=== PATIENT | female | born 1945 | race Caucasian/White ===

== ENCOUNTER 2017-03-11 03:04 | Observation (INO) ==
[2017-03-11 03:33] LABS: Basophils # 0.1 K/mcL (0.0-0.2); Basophils % 0.7 %; Eosinophils # 0.2 K/mcL (0.0-0.6); Eosinophils % 2.5 %; Hematocrit 40.7 % (35.3-44.9); Hemoglobin 13.6 g/dL (11.5-15.4); Immature Granulocytes % 0.4 % (0-4); Lymphocytes # 2.5 K/mcL (0.6-4.6); Lymphocytes % 29.5 %; Mean Corpuscular HGB Conc 33.4 g/dL (31.6-35.5); Mean Corpuscular Hemoglobin 30.7 pg (28.0-33.3); Mean Corpuscular Volume 91.9 fL (83.0-100.0); Mean Platelet Volume 9.5 fL (9.4-12.4); Monocytes # 0.4 K/mcL (0.0-1.3); Monocytes % 5.3 %; Neutrophils # 5.1 K/mcL (1.6-8.9); Platelet Count 210 K/mcL (140-400); Red Blood Count 4.43 M/mcL (3.82-4.97); Segmented Neutrophils % 61.6 %
[2017-03-11 03:44] LABS: Activated Partial Thrombo Time 32.2 Seconds (26.0-36.0)
--- NOTE | 2017-03-11 03:46 | Emergency Department Note ---
Disposition Clinical Impression: Chest pain, rule out acute myocardial infarction Disposition: Admitted As Inpatient Condition: Fair Time of Disposition: 04:39 Chest Pain HPI - General Chief Complaint: ED Chest Pain Stated Complaint: Chest Pain Time Seen by Provider: 03/11/17 03:05 Source: patient, EMS Mode of arrival: EMS Limitations: no limitations Vital Signs Reviewed: Yes Nursing Notes Reviewed: Yes - History of Present Illness HPI Narrative: Alert and oriented nontoxic-appearing 72-year-old female presents for evaluation of substernal chest pain that has been intermittent in nature for the past 2 days. She states that the pain is alleviated somewhat by lying in a supine position. It is worsened by sitting upright. She denies any fevers, chills, cough, hemoptysis, abdominal pain, edema, or shortness of breath. She describes the pain as a dull ache and she rates it a 2 out of 10 on a 10 point scale. There is no migration or radiation of this pain. Pt complaint: chest pain Onset (ago): day(s) (2) Duration: intermittent Pain Location: substernal Severity: mild Severity scale (1-10): 1 Quality: aching Pain Radiation: none Improves with: other (Lying flat) Worsens with: other (Sitting upright) Associated symptoms: Denies: nausea, diaphoresis, dyspnea, syncope, palpitations , fever, cough, leg swelling Treatments prior to arrival chest pain: aspirin (81 mg aspirin 3 tablets given per EMS in route to the hospital.) - Related Data Allergies Allergy/AdvReac Type Severity Reaction Status Date / Time No Known Allergies Allergy Verified 03/11/17 03:05 All systems ED: reviewed and negative except as stated. Constitutional: Denies: fever, chills, weakness, weight change Eyes: Denies: eye pain, eye discharge, vision change ENT ED: Denies: ear pain, throat pain, dental pain, hearing loss, epistaxis, congestion, dysphagia Cardiovascular: Reports: as per HPI, chest pain. Denies: palpitations, dyspnea on exertion, edema, syncope Respiratory: Denies: cough, dyspnea, wheezes, hemoptysis, stridor Gastrointestinal: Denies: abdominal pain, nausea, vomiting, diarrhea, constipation, hematemesis, melena, hematochezia Genitourinary: Denies: dysuria, frequency, hematuria, discharge Musculoskeletal: Denies: back pain, neck pain, arthralgia, myalgia Integumentary: Denies: rash, abrasion, lesions Neurological: Denies: headache, weakness, numbness, paresthesias, confusion, abnormal gait, vertigo Psychiatric: Denies: anxiety, depression, suicidal thoughts, homicidal thoughts , auditory hallucinations, visual hallucinations Endocrine: Denies: fatigue Hematological/Lymphatic: Denies: easy bleeding, easy bruising Allergic/Immunologic: Denies: facial swelling, urticaria Chest Pain PMH - Past Medical History Medical history: Reports: diabetes, hypertension, renal disease Psychiatric history: Reports: no psych history - Social History Smoking Status: Never smoker Alcohol use: Reports: none Drug use: Reports: none Physical Exam - General Limitations: no limitations General appearance: alert - Head Head exam: atraumatic, normocephalic, normal inspection - Eye Eye exam: Present: normal appearance, PERRL, EOMI. Absent: nystagmus - ENT ENT exam: mucous membranes moist - Neck Neck exam: Present: normal inspection, full ROM, trachea midline - Chest Chest inspection: Present: normal inspection, symmetric chest wall rise. Absent : tenderness - Respiratory Respiratory exam: Present: normal lung sounds bilaterally. Absent: respiratory distress, wheezes, stridor, accessory muscle use, prolonged expiratory phase - Cardiovascular Cardiovascular exam: Present: regular rate, normal rhythm, normal heart sounds - Abdominal Exam Abdominal exam: Present: soft, Non-Tender, normal bowel sounds - Extremities Exam Extremities exam: Present: normal inspection, full ROM. Absent: tenderness, pedal edema - Neurological Exam Neurological exam: Present: alert, oriented X3 - Psychiatric Psychiatric exam: Present: normal affect, normal mood - Skin Skin exam: Present: warm, dry, intact, normal color Course Course Narrative: I have discussed this patient's case with Dr. Salazar. Dr. Salazar has had a [id number] evaluation with the patient. 0435: I spoke with Dr. Villanueva of the hospitalist service. Dr. Villanueva has accepted the patient for admission to the hospital for further evaluation of her chest pain and ACS rule out. Vital Signs Temperature 98.8 F 03/11/17 03:05 Pulse Rate 70 03/11/17 03:05 Respiratory Rate 16 03/11/17 03:05 Blood Pressure 141/102 03/11/17 03:05 O2 Sat by Pulse Oximetry 97 03/11/17 03:05 Temperature 98.8 F 03/11/17 03:05 Pulse Rate 74 03/11/17 04:38 Respiratory Rate 16 03/11/17 04:38 Blood Pressure 116/61 03/11/17 04:38 O2 Sat by Pulse Oximetry 95 03/11/17 04:38 Oxygen Delivery Oxygen Delivery Room Air Chest Pain - Medical Records Medical records reviewed: Yes I reviewed the patient's medical records. - Lab Data Lab results reviewed: Yes I reviewed the patient's lab results. Lab results narrative: Lab Results 03/11/17 03/11/17 03/11/17 Range/Units 03:24 03:24 03:24 WBC 8.3 (4.3-11.1) K/mcL RBC 4.43 (3.82-4.97) M/mcL Hgb 13.6 (11.5-15.4) g/dL Hct 40.7 (35.3-44.9) % MCV 91.9 (83.0-100.0) fL MCH 30.7 (28.0-33.3) pg MCHC 33.4 (31.6-35.5) g/dL RDW 13.0 (11.5-14.5) % Plt Count 210 (140-400) K/mcL MPV 9.5 (9.4-12.4) fL Immature Gran % 0.4 (0-4) % Seg Neutrophils % 61.6 % Lymphocytes % 29.5 % Monocytes % 5.3 % Eosinophils % 2.5 % Basophils % 0.7 % Neutrophils # 5.1 (1.6-8.9) K/mcL Lymphocytes # 2.5 (0.6-4.6) K/mcL Monocytes # 0.4 (0.0-1.3) K/mcL Eosinophils # 0.2 (0.0-0.6) K/mcL Basophils # 0.1 (0.0-0.2) K/mcL PT 11.0 (9.4-12.1) Seconds INR 1.0 APTT 32.2 (26.0-36.0) Seconds Sodium 137 (136-145) mEq/L Potassium 3.8 (3.5-5.1) mEq/L Chloride 104 (98-107) mEq/L Carbon Dioxide 24 (23-29) mEq/L BUN 17 (8-23) mg/dL Creatinine 1.02 (0.60-1.20) mg/dL Est GFR ( Amer) > 60 (> 60) Est GFR (Non-Af Amer) 53 L (> 60) BUN/Creatinine Ratio 17 (6-26) Glucose 166 H (70-105) mg/dL Calculated Osmolality 289 (280-300) Calcium 9.9 (8.6-10.3) mg/dL Troponin I (< 0.04) ng/mL 03/11/17 Range/Units 03:24 WBC (4.3-11.1) K/mcL RBC (3.82-4.97) M/mcL Hgb (11.5-15.4) g/dL Hct (35.3-44.9) % MCV (83.0-100.0) fL MCH (28.0-33.3) pg MCHC (31.6-35.5) g/dL RDW (11.5-14.5) % Plt Count (140-400) K/mcL MPV (9.4-12.4) fL Immature Gran % (0-4) % Seg Neutrophils % % Lymphocytes % % Monocytes % % Eosinophils % % Basophils % % Neutrophils # (1.6-8.9) K/mcL Lymphocytes # (0.6-4.6) K/mcL Monocytes # (0.0-1.3) K/mcL Eosinophils # (0.0-0.6) K/mcL Basophils # (0.0-0.2) K/mcL PT (9.4-12.1) Seconds INR APTT (26.0-36.0) Seconds Sodium (136-145) mEq/L Potassium (3.5-5.1) mEq/L Chloride (98-107) mEq/L Carbon Dioxide (23-29) mEq/L BUN (8-23) mg/dL Creatinine (0.60-1.20) mg/dL Est GFR ( Amer) (> 60) Est GFR (Non-Af Amer) (> 60) BUN/Creatinine Ratio (6-26) Glucose (70-105) mg/dL Calculated Osmolality (280-300) Calcium (8.6-10.3) mg/dL Troponin I < 0.03 (< 0.04) ng/mL Result diagrams: 03/11/17 03:24 03/11/17 03:24 Lab Results 03/11/17 03/11/17 03/11/17 Range/Units 03:24 03:24 03:24 WBC 8.3 (4.3-11.1) K/mcL RBC 4.43 (3.82-4.97) M/mcL Hgb 13.6 (11.5-15.4) g/dL Hct 40.7 (35.3-44.9) % MCV 91.9 (83.0-100.0) fL MCH 30.7 (28.0-33.3) pg MCHC 33.4 (31.6-35.5) g/dL RDW 13.0 (11.5-14.5) % Plt Count 210 (140-400) K/mcL MPV 9.5 (9.4-12.4) fL Immature Gran % 0.4 (0-4) % Seg Neutrophils % 61.6 % Lymphocytes % 29.5 % Monocytes % 5.3 % Eosinophils % 2.5 % Basophils % 0.7 % Neutrophils # 5.1 (1.6-8.9) K/mcL Lymphocytes # 2.5 (0.6-4.6) K/mcL Monocytes # 0.4 (0.0-1.3) K/mcL Eosinophils # 0.2 (0.0-0.6) K/mcL Basophils # 0.1 (0.0-0.2) K/mcL PT 11.0 (9.4-12.1) Seconds INR 1.0 APTT 32.2 (26.0-36.0) Seconds Sodium 137 (136-145) mEq/L Potassium 3.8 (3.5-5.1) mEq/L Chloride 104 (98-107) mEq/L Carbon Dioxide 24 (23-29) mEq/L BUN 17 (8-23) mg/dL Creatinine 1.02 (0.60-1.20) mg/dL Est GFR ( Amer) > 60 (> 60) Est GFR (Non-Af Amer) 53 L (> 60) BUN/Creatinine Ratio 17 (6-26) Glucose 166 H (70-105) mg/dL Calculated Osmolality 289 (280-300) Calcium 9.9 (8.6-10.3) mg/dL Troponin I (< 0.04) ng/mL 03/11/17 Range/Units 03:24 WBC (4.3-11.1) K/mcL RBC (3.82-4.97) M/mcL Hgb (11.5-15.4) g/dL Hct (35.3-44.9) % MCV (83.0-100.0) fL MCH (28.0-33.3) pg MCHC (31.6-35.5) g/dL RDW (11.5-14.5) % Plt Count (140-400) K/mcL MPV (9.4-12.4) fL Immature Gran % (0-4) % Seg Neutrophils % % Lymphocytes % % Monocytes % % Eosinophils % % Basophils % % Neutrophils # (1.6-8.9) K/mcL Lymphocytes # (0.6-4.6) K/mcL Monocytes # (0.0-1.3) K/mcL Eosinophils # (0.0-0.6) K/mcL Basophils # (0.0-0.2) K/mcL PT (9.4-12.1) Seconds INR APTT (26.0-36.0) Seconds Sodium (136-145) mEq/L Potassium (3.5-5.1) mEq/L Chloride (98-107) mEq/L Carbon Dioxide (23-29) mEq/L BUN (8-23) mg/dL Creatinine (0.60-1.20) mg/dL Est GFR ( Amer) (> 60) Est GFR (Non-Af Amer) (> 60) BUN/Creatinine Ratio (6-26) Glucose (70-105) mg/dL Calculated Osmolality (280-300) Calcium (8.6-10.3) mg/dL Troponin I < 0.03 (< 0.04) ng/mL - Radiology Data Radiology results reviewed: Yes I reviewed the patient's radiology results. Chest X-Ray 03/11/17 03:08 IMPRESSION: No acute cardiopulmonary disease. D/ / Jose Antonio Garcia MD / Jose Antonio Garcia MD Interpreting Provider: Jose Antonio Garcia MD - EKG Data EKG attestation: Yes I reviewed and interpreted this EKG. Heart Score - Score History: Moderately Suspicious EKG: Normal Age: Greater than 65 Risk Factors: Equal/Greater than 3 risk factor or history of atherosclerotic disease Troponin: Less than normal limit HEART Score Total: 5 Attestation Statement - Attestation Attestation: I, Jayson Salazar MD, personally evaluated this patient and discussed their management with the resident physician. I reviewed the resident's note and agree with the documented findings, medical decision making, and plan of care. 72-year-old female presents to the emergency department with a complaint of intermittent substernal chest pain over the past 2 days. No radiation of the pain. No nausea or vomiting or diaphoresis. No shortness of breath. No cough or fever. No prior history of heart problems. The pain seems to come on at rest and seems to be improved with getting up and walking around. No dizziness or syncope. Some generalized weakness. On examination patient is a well-developed well-nourished well-appearing elderly female in no acute distress. She is alert and oriented 3. There is no cyanosis or diaphoresis. Chest is nontender to palpation. Breath sounds are clear and equal bilaterally. Heart regular rate and rhythm. Abdomen soft and nontender with normal bowel sounds. Labs reviewed. Chest x-ray negative. No acute changes on EKG. The hospitalist, Dr. Villanueva, was consulted and accepted admission of the patient.
[2017-03-11 03:52] LABS: BUN/Creatinine Ratio 17 (6-26); Blood Urea Nitrogen 17 mg/dL (8-23); Calcium 9.9 mg/dL (8.6-10.3); Carbon Dioxide 24 mEq/L (23-29); Chloride 104 mEq/L (98-107); Glucose 166 mg/dL (70-105); Osmolality,Calculated 289 (280-300); Potassium 3.8 mEq/L (3.5-5.1); Sodium 137 mEq/L (136-145); eGFR For African Americans > 60 (> 60); eGFR For Non-African Americans 53 (> 60)
[2017-03-11] MEDS ORDERED: Acetaminophen 325 MG TABLET PO PRN (05:12)
[2017-03-11] MEDS ORDERED: Naloxone 0.4 MG/ML INJ IVP PRN (05:12)
[2017-03-11] MEDS ORDERED: *HR* Dextrose 50 % in Water (Syg) 50 ML SYRINGE IVP PRN (05:21)
[2017-03-11] MEDS ORDERED: Dextrose Gel 15 GM/37.5 ML TUBE PO PRN ×2 (05:21)
[2017-03-11] MEDS ORDERED: D5% in Water 1,000 ML IVC PRN (05:21)
--- NOTE | 2017-03-11 05:33 | Internal Med History&Physical ---
Date of Encounter: 03/11/17 Time of Encounter: 04:00 Assessment and Plan (1) Chest pain, rule out acute myocardial infarction Current visit: Yes Status: Acute Pt has chest pain. Hx of HTN, DM. HLD, need to r/o ACS. - Continuous cardiac monitoring. - Track 3 sets of troponin. - Echocardiogram. - May consider stress test but it only can be done on Sunday. May decide by other test results and it can also be done as outpatient. (2) HTN (hypertension) Current visit: Yes Status: Acute Will resume home med after varification. Qualifiers: Hypertension type: essential hypertension Qualified Code(s): I10 - Essential (primary) hypertension (3) Diabetes Current visit: Yes Status: Acute will place pt on sliding scale as pt is in hospital. 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 Bianchi is a 72 year old female with Hx of HTN, DM, CKD, HLD, present to ER for chest pain. Pt said pain is started since 2-3 days ago. Pain is located in mid chest, pressure like, no radiation, rate as 2-3/10. Pt said pain is generally constant but she will forget it if her attention moved to other things but more painful when she focus on the pain. Pt denies SOB, nausea, vomiting, diaphoresis. There is no obvious aggravating or alleviating factors. She has no fever, runny nose, sore throat, or cough. Past Med Surg Social Fam HX - Past Medical History Medical history: diabetes, hypertension, renal disease Psychiatric history: no psych history - Social History Smoking Status: Never smoker Smokeless Tobacco Status: No Alcohol use: none Drug use: none - Family History Mother History Unknown: Yes Internal Medicine - H&P: Meds 3 Allergy/AdvReac Type Severity Reaction Status Date / Time No Known Allergies Allergy Verified 03/11/17 03:05 All Systems PM: A 10-system review of systems was performed and is negative for pertinent findings except as documented above in the HPI. - Constitutional Vitals: Temp Pulse Resp BP Pulse Ox 98.8 F 74 16 116/61 95 03/11/17 03:05 03/11/17 04:38 03/11/17 04:38 03/11/17 04:38 03/11/17 04:38 General appearance: Present: A&O X 3, no acute distress, answers questions appropriately - Head Head exam: Present: atraumatic, normocephalic - Eye Eye exam: Present: PERRL, conjuntiva pink, sclera anicteric Pupils: Present: PERRL - Neck Neck exam general surgery: Present: supple, trachea midline. Absent: lymphadenopathy - Respiratory Respiratory exam: Present: CTAB. Absent: accessory muscle use, rales, rhonchi, wheezes - Cardiovascular Cardiovascular exam: Present: RRR, +S1, +S2. Absent: diastolic murmur, gallop, rubs, systolic murmur - GI/Abdominal GI/Abdominal exam: Present: normal bowel sounds, soft, no peritoneal signs. Absent: distended, tenderness - Extremities Exam Extremities exam: Present: warm, radial pulses palpable and symmetrical. Absent : calf tenderness, cyanotic, pedal edema - Neurological Exam Neurological exam: Present: CN II-XII intact, oriented X3, no focal deficits. Absent: pronater drift, facial droop, speech deficit - Skin Skin exam: Present: dry, intact Internal Med - H&P Results - Labs CBC & Chem 7: 03/11/17 03:24 03/11/17 03:24 - EKG Data -: EKG Interpreted by Myself EKG shows normal: sinus rhythm Rate: normal
[2017-03-11] MEDS: *HR* Heparin 5,000 UNIT/ML VIAL SQ SCH ×2 (06:52→16:44)
[2017-03-11] MEDS: Insulin LISPRO 300 UNITS/3 ML VIAL SQ SCH ×3 (07:38→16:39)
--- NOTE | 2017-03-11 16:02 | Internal Med Progress Note ---
Date of Encounter: 03/11/17 Time of Encounter: 14:15 - Assessment and plan (1) Chest pain, rule out acute myocardial infarction Current Visit: Yes Status: Acute Assessment and plan: Patient with no prior cardiac history. She has never had any cardiac testing prior to this visit. Patient presented to the emergency room with complaint of 2-3 day history of midsternal pressure without radiation. She denies any relation to food. She stated that the chest pain was better with rest, and is slightly relieved with lying on her right side. It is almost constant, worse at night, she states during the day she was up working and really did not notice it, but was still there. Patient denies cough or congestion, no nausea or diaphoresis. Chest pain is not reproducible. She denies any recent sick contacts. Chest x-ray is negative. Troponins have been negative 3. Lipid panel and A1c ordered for morning. Echocardiogram with preserved EF and no significant valvular dysfunction, mild LV DD. Patient with increased risk factors of age, sex, hypertension and diabetes. Stress test in the morning. 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 (2) Diabetes Current Visit: Yes Status: Acute Assessment and plan: A1c ordered for morning. Continue sliding scale insulin, Accu-Cheks before meals at bedtime, diabetic diet. Hold home medications. 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 Continue home medications. Qualifiers: Hypertension type: essential hypertension Qualified Code(s): I10 - Essential (primary) hypertension (4) DVT prophylaxis Current Visit: Yes Status: Acute Assessment and plan: Heparin subcutaneous. - Time Spent With Patient less than 15 minutes - Subjective Interval history: Pt was seen and assessed at bedside at 1415. Still having almost constant chest pain, declines pain medication or nitroglycerin. Denies nausea, vomiting, diaphoresis, or abdominal pain. Pt initially states that she wants to go home, she and I discussed her risk factors and age and she was agreeable to stay for stress test tomorrow. - Constitutional Vitals: Temp Pulse Resp BP Pulse Ox 98.1 F 68 18 114/71 95 03/11/17 15:13 03/11/17 15:13 03/11/17 15:13 03/11/17 15:13 03/11/17 15:13 General appearance: Present: cooperative, A&O X 3, pleasant, no acute distress, answers questions appropriately - Head Head exam: Present: atraumatic, normal inspection, normocephalic - Eye Eye exam: Present: conjuntiva pink, sclera anicteric - Neck Neck exam general surgery: Present: supple, trachea midline. Absent: lymphadenopathy, tenderness - Respiratory Respiratory exam: Present: CTAB. Absent: accessory muscle use, chest wall tenderness, rales, respiratory distress, rhonchi, wheezes - Cardiovascular Cardiovascular exam: Present: RRR, +S1, +S2. Absent: diastolic murmur, gallop, rubs, systolic murmur - GI/Abdominal GI/Abdominal exam: Present: normal bowel sounds, soft. Absent: distended, hepatomegaly, tenderness - Extremities Exam Extremities exam: Present: normal capillary refill, normal inspection, warm, radial pulses palpable and symmetrical. Absent: calf tenderness, cyanotic, pedal edema, tenderness - Neurological Exam Neurological exam: Present: alert, oriented X3, no focal deficits. Absent: facial droop, speech deficit - Skin Skin exam: Present: dry, intact, normal color, warm. Absent: rash Internal Medicine: Result - Labs CBC & Chem 7: 03/11/17 03:24 03/11/17 03:24 Labs: Cardiac Enzymes 03/11/17 03/11/17 Range/Units 09:06 14:52 Troponin I < 0.03 < 0.03 (< 0.04) ng/mL - ABG Interpretation ABG results: PT/INR, D-dimer PT 11.0 Seconds (9.4-12.1) 03/11/17 03:24 - Impressions Impressions Echocardiogram 03/11/17 05:19 Impressions: No pulmonary hypertension. Mild left ventricular diastolic dysfunction. LVEF 60-65%. No significant valvular dysfunction. Left Ventricular Wall Motion: Rest Echo Findings All wall segments showed normal motion. Findings: Study Quality * Technically adequate exam. Right Ventricle * Normal right ventricular structure and function. Right Atrium * Normal right atrial size. Aortic Valve * Trileaflet aortic valve with normal function. Mitral Valve * Normal mitral valve structure and function. Interatrial Septum * No evidence of PFO by color Doppler. Aorta * Normally sized aortic root. Pericardium * The pericardium appears normal. Tricuspid Valve * Trace tricuspid regurgitation. * No tricuspid stenosis. * No pulmonary hypertension. * Estimated RVSP is 32 mmHg. Pulmonic Valve * No pulmonic stenosis. * No pulmonic regurgitation. * Pulmonic valve is not well visualized. Left Ventricle * Mild left ventricular diastolic dysfunction. * No segmental dysfunction. * LVEF 60-65%. * Normal LV chamber size, wall thickness and function. Left Atrium * Mildly dilated left atrium. IVC * Normal IVC dimensions and inspiratory collapse. ECG Findings * Normal sinus rhythm. Consult Discharge Plan - Plan Referrals: Davis Candelaria MD [Primary Care Provider] -
[2017-03-11] MEDS ORDERED: Insulin LISPRO 300 UNITS/3 ML VIAL SQ SCH (21:00)
[2017-03-12 05:49] LABS: Basophils # 0.1 K/mcL (0.0-0.2); Basophils % 0.8 %; Eosinophils # 0.2 K/mcL (0.0-0.6); Eosinophils % 2.5 %; Hematocrit 39.7 % (35.3-44.9); Hemoglobin 13.1 g/dL (11.5-15.4); Immature Granulocytes % 0.4 % (0-4); Immature Platelets 3.8 % (1.1-6.1); Lymphocytes % 42.8 %; Mean Corpuscular Hemoglobin 30.3 pg (28.0-33.3); Mean Corpuscular Volume 91.9 fL (83.0-100.0); Mean Platelet Volume 10.1 fL (9.4-12.4); Monocytes # 0.5 K/mcL (0.0-1.3); Monocytes % 6.5 %; Neutrophils # 3.3 K/mcL (1.6-8.9); Nucleated Red Blood Cells 0.3 /100 WBC (0); Platelet Count 216 K/mcL (140-400); Red Blood Count 4.32 M/mcL (3.82-4.97); Red Cell Distribution Width 13.2 % (11.5-14.5)
[2017-03-12] MEDS: *HR* Heparin 5,000 UNIT/ML VIAL SQ SCH (05:49)
[2017-03-12 05:51] LABS: Hemoglobin A1C 6.7 %
[2017-03-12 06:11] LABS: Calcium 9.6 mg/dL (8.6-10.3); Chol/HDL Ratio 3.9 (0-4.9); Potassium 3.5 mEq/L (3.5-5.1)
[2017-03-12] MEDS: Insulin LISPRO 300 UNITS/3 ML VIAL SQ SCH ×2 (08:10→11:45)
--- NOTE | 2017-03-12 09:47 | Electrocardiograph Report ---
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
[2017-03-12] MEDS ORDERED: Regadenoson 0.4 MG/5 ML SYRINGE IVP ONE (11:02)
[2017-03-12 15:49] VITALS: BP 112/67
--- NOTE | 2017-03-12 16:40 | Discharge Summary ---
Date of Encounter: 03/12/17 Time of Encounter: 10:55 - Discharge Diagnosis (1) Chest pain, rule out acute myocardial infarction Priority: Primary Status: Acute Comments: Patient with no prior cardiac history. She has never had any cardiac testing prior to this visit. Patient presented to the emergency room with complaint of 2-3 day history of midsternal pressure without radiation. She denies any relation to food. She stated that the chest pain was better with rest, and is slightly relieved with lying on her right side. It is almost constant, worse at night, she states during the day she was up working and really did not notice it, but was still there. Patient denies cough or congestion, no nausea or diaphoresis. Chest pain is not reproducible. She denies any recent sick contacts. Chest x-ray is negative. Troponins have been negative 3. A1c 6.7% and lipid panel WNL. Echocardiogram with preserved EF and no significant valvular dysfunction, mild LV DD. Stress test negative for ischemia or infarct with gated EF > 70%. Patient with increased risk factors of age, sex, hypertension and diabetes. Pain is not reproducible with inspiration or palpation, movement. Pt denies any reflux/GERD symptoms and no relation to food. Chest pain could be stable angina, pt will follow up with pcP. (2) Diabetes Priority: Secondary Status: Acute Comments: A1c 6.7%. Continue home medications, diabetic diet, Accu-Chek per schedule. 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 Continue home medications. Qualifiers: Hypertension type: essential hypertension Qualified Code(s): I10 - Essential (primary) hypertension (4) DVT prophylaxis Priority: Secondary Status: Acute Comments: Heparin subcutaneous. Patient has been ambulatory in room. - Discharge Medications Home Medications: BuPROPion XL (24 HR) [Wellbutrin Xl] 150 mg PO DAILY 03/11/17 [History] Citalopram [CeleXA] 10 mg PO DAILY 03/11/17 [History] GlipiZIDE [Glipizide Xl] 5 mg PO DAILY 03/11/17 [History] LORazepam [Ativan] 0.5 mg PO HS PRN 03/11/17 [History] Lisinopril [Zestril] 20 mg PO DAILY 03/11/17 [History] Lovastatin [Mevacor] 20 mg PO HS 03/11/17 [History] amLODIPine [Norvasc] 5 mg PO DAILY 03/11/17 [History] Allergies/Adverse Reactions: 3 Allergy/AdvReac Type Severity Reaction Status Date / Time No Known Allergies Allergy Verified 03/11/17 03:05 Procedures/tests Complete & Pending: Procedures Performed prior 72 hours Category Date Time Status NM keira perf SPECT multi [NM] Routine Exams 03/12/17 10:50 Taken EV echocardiogram Routine Y 03/11/17 05:19 Completed SP pharm nuclear stress Routine Y 03/12/17 10:50 Completed Date of admission: 03/11/17 04:46 Primary care physician: Davsi Candelaria MD Discharging clinician: Tyra Ramírez Anticipated date of discharge: 03/12/17 - Patient Status Disposition: Home, Self-Care Condition: Good Functional capacity at discharge: independent ambulation Overall status at discharge: patient is back to baseline - Discharge Instructions Follow Up With: Davis Candelaria MD [Primary Care Provider] - Additional Instructions: Please follow up with primary care provider in the next 7-10 days for recheck. Please resume your normal home medications. Please return to your normal activities as tolerated. Resume to your normal diet. Return to the emergency department as needed or for any other problems or concerns, or if symptoms return or worsen. - Diet and Activity Activity: increase activity as tolerated Diet: diabetic diet Hospital course: Ms. Bianchi is a 72 year old female with past medical history of hyperlipidemia, diabetes, hypertension, who presents to emergency department 2-3 day history of chest pain. Echo was now negative stress test was negative, chest x-ray and troponins were negative. Patient will continue her normal home medications. No adjustments have been made. Her vitals and labs are stable and within normal limits. Patient is stable and appropriate for discharge. Please see assessment and plan for hospital course. - Time Spent with Patient Total time spent providing and/or coordinating discharge services: Less than 30 minutes - Constitutional Vitals: Temp Pulse Resp BP Pulse Ox 98.4 F 80 16 112/67 96 03/12/17 15:48 03/12/17 15:48 03/12/17 15:48 03/12/17 15:48 03/12/17 15:48 General appearance: Present: cooperative, A&O X 3, pleasant, no acute distress, answers questions appropriately - Head Head exam: Present: atraumatic, normocephalic - Eye Eye exam: Present: PERRL, conjuntiva pink, sclera anicteric Pupils: Present: PERRL - Neck Neck exam general surgery: Present: supple, trachea midline. Absent: lymphadenopathy - Respiratory Respiratory exam: Present: CTAB. Absent: accessory muscle use, rales, rhonchi, wheezes - Cardiovascular Cardiovascular exam: Present: RRR, +S1, +S2. Absent: diastolic murmur, gallop, rubs, systolic murmur - GI/Abdominal GI/Abdominal exam: Present: normal bowel sounds, soft, no peritoneal signs. Absent: distended, hepatomegaly, tenderness - Extremities Exam Extremities exam: Present: normal capillary refill, normal inspection, warm, radial pulses palpable and symmetrical. Absent: calf tenderness, cyanotic, pedal edema, tenderness - Neurological Exam Neurological exam: Present: alert, oriented X3, no focal deficits. Absent: facial droop, speech deficit - Skin Skin exam: Present: dry, intact, normal color, warm. Absent: rash
== END 2017-03-12 17:00 | disposition home or self-care (01) ==
LOC: EMEROO 03:04 → 3BNU 03:04
PROVIDERS: ADMIT Internal Medicine; ATTEND Registered Nurse